=== PATIENT | male | born 1975 | race Two or more races ===

== ENCOUNTER 2019-02-24 09:27 | Emergency (ER) | payer SELFPAY ==
[2019-02-24] MEDS ORDERED: ASPIRIN 81 MG TABLET, CHEWABLE PO ONE (10:09)
--- NOTE | 2019-02-24 10:11 | EKG REPORT ---
SEVERITY:- NORMAL ECG - SINUS RHYTHM : Confirmed by: Lisa Toro 24-Feb-2019 10:10:49
[2019-02-24] MEDS ORDERED: NORMAL SALINE 1000 ML 1,000 ML IV ONE (10:30)
[2019-02-24] MEDS ORDERED: KETOROLAC TROMETHAMINE INJ/PF 30 MG/1 ML SDV IV ONE (10:30)
[2019-02-24 10:40] LABS: ABSOLUTE LYMPHOCYTES (AUTO) 1.1 10^3/uL (0.5-4.7); ABSOLUTE MONOCYTES (AUTO) 0.4 10^3/uL (0.1-1.4); BASOPHILS % (AUTO) 0.2 % (0-2); HEMATOCRIT 40.8 % (37.9-51.0); HEMOGLOBIN 13.8 g/dL (13.5-17.0); LYMPHOCYTES % (AUTO) 9.8 % (13-45); MEAN CORPUSCULAR HEMOGLOBIN 31.6 pg (27.0-33.4); MEAN CORPUSCULAR HGB CONC 33.8 g/dL (32.0-36.0); MEAN CORPUSCULAR VOLUME 94 fl (80-97); MONOCYTES % (AUTO) 3.8 % (3-13); PLATELET COUNT 149 10^3/uL (150-450); RED BLOOD COUNT 4.36 10^6/uL (4.35-5.55); RED CELL DISTRIBUTION WIDTH 13.3 % (11.5-14.0); SEGMENTED NEUTROPHILS % (AUTO) 86.2 % (42-78); TOTAL CELLS COUNTED % (AUTO) 100 %; WHITE BLOOD COUNT 11.6 10^3/uL (4.0-10.5)
--- NOTE | 2019-02-24 10:48 | RADIOLOGY REPORT (SQ) ---
EXAM DESCRIPTION: CHEST 2 VIEWS COMPLETED DATE/TIME: 02/24/2019 10:36 am REASON FOR STUDY: cp COMPARISON: None. EXAM PARAMETERS: NUMBER OF VIEWS: two views TECHNIQUE: Digital Frontal and Lateral radiographic views of the chest acquired. RADIATION DOSE: NA LIMITATIONS: none FINDINGS: LUNGS AND PLEURA: No opacities, masses or pneumothorax. No pleural effusion. MEDIASTINUM AND HILAR STRUCTURES: No masses or contour abnormalities. HEART AND VASCULAR STRUCTURES: Heart normal size. No evidence for failure. BONES: No acute findings. HARDWARE: None in the chest. OTHER: No other significant finding. IMPRESSION: NO ACUTE RADIOGRAPHIC FINDING IN THE CHEST. TECHNICAL DOCUMENTATION: JOB ID: [id number]- All Rights Reserved Reading location - IP/workstation name: [email or web address]
[2019-02-24 11:17] LABS: ALANINE AMINOTRANSFERASE 44 U/L (21-72); ALBUMIN 3.9 g/dL (3.5-5.0); ALKALINE PHOSPHATASE 56 U/L (38-126); ANION GAP 8 (5-19); ASPARTATE AMINO TRANSFERASE 23 U/L (17-59); BILIRUBIN,DIRECT 0.2 mg/dL (0.0-0.4); BILIRUBIN,TOTAL 0.9 mg/dL (0.2-1.3); BLOOD UREA NITROGEN 16 mg/dL (7-20); CALCIUM 8.9 mg/dL (8.4-10.2); CARBON DIOXIDE 24 mmol/L (22-30); CHLORIDE 104 mmol/L (98-107); CREATINE KINASE 82 U/L (55-170); GLUCOSE 124 mg/dL (75-110); TOTAL PROTEIN 6.7 g/dL (6.3-8.2)
[2019-02-24 11:18] LABS: CREATINE KINASE MB 0.42 ng/mL (<4.55)
[2019-02-24 11:23] LABS: TROPONIN I < 0.012 ng/mL
--- NOTE | 2019-02-24 13:51 | ER Document Report ---
ED General - General Chief Complaint: Chest Pain Stated Complaint: CHEST PAIN Time Seen by Provider: 02/24/19 10:19 - HPI Notes: Patient is a 43-year-old gentleman who presents to the emergency department for evaluation. He has multiple complaints. Last night he started feeling "just bad." He stated he felt achy all over, felt as if he had a fever. He states he has had some tingling in his chest. He states he is felt febrile today. He has had pain that radiates in his arms and his legs. He has had some nausea but no emesis. Normal bowel movements. He states he noticed a red melly on his right ankle. He believes he might have been stung by a an insect of some sort. It was hurting yesterday, now it itches. He denies any shortness of breath or cough. No dental issues. He is urinating normally. Normal bowel movements. - Related Data Allergies/Adverse Reactions: No Known Allergies Allergy (Verified 02/24/19 09:32) Past Medical History - General Information source: Patient - Social History Smoking Status: Never Smoker Family History: DM - Recent diagnosis and brother Patient has suicidal ideation: No Patient has homicidal ideation: No Endocrine Medical History: Reports: Hx Diabetes Mellitus Type 2 Renal/ Medical History: Denies: Hx Peritoneal Dialysis Review of Systems - Review of Systems Constitutional: See HPI EENT: No symptoms reported Cardiovascular: See HPI Respiratory: No symptoms reported Gastrointestinal: See HPI Genitourinary: No symptoms reported Musculoskeletal: See HPI Skin: No symptoms reported Neurological/Psychological: No symptoms reported Physical Exam - Vital signs Vitals: Temp Pulse Resp BP Pulse Ox 97.7 F 51 L 16 121/61 96 02/24/19 09:43 02/24/19 09:43 02/24/19 09:43 02/24/19 09:43 02/24/19 09:43 - Notes Notes: Vital signs reviewed, please refer to chart. Head is normocephalic, atraumatic. Pupils equal round, reactive to light. Neck is supple without meningismus. Heart is regular rate and rhythm. Lungs are clear to auscultation bilaterally. Abdomen is soft, nontender, normoactive bowel sounds throughout. Extremities without cyanosis, clubbing. Posterior calves are nontender. Summation of the right ankle yields an ecchymotic appearing lesion approximately 4 cm in diameter, with some vague, not well demarcated surrounding erythema. Peripheral pulses are equal. Skin is warm and dry. Patient is awake, alert, neurological exam is nonfocal. Course - Re-evaluation Re-evalutation: 02/24/19 13:51 Patient presents emergency department for evaluation of multiple complaints. In short, he was registered as a chest pain, but his symptoms seem more likely to be at the possibility of infectious. His heart rate is in the 50s. His laboratory investigations reveal a mild leukocytosis but otherwise unremarkable. The symptom that he had in his chest was only a "tingling." Asked him to the patient that it is a second order here would rule out coronary artery disease. He is a diabetic, is obese, should have further evaluation of the chest pain. But at this point, I do suspect this is likely secondary to infection. I will go ahead and treat him with clindamycin for cellulitis of his right ankle. He is amenable to this plan. He is to follow-up with primary care next week, return to the ED with worsening or new concerning symptoms of any sort. - Vital Signs Vital signs: Temp Pulse Resp BP Pulse Ox 97.7 F 51 L 16 125/79 98 02/24/19 10:00 02/24/19 09:43 02/24/19 12:01 02/24/19 12:01 02/24/19 12:01 - Laboratory Result Diagrams: 02/24/19 10:15 02/24/19 10:15 Laboratory results interpreted by me: 02/24/19 02/24/19 10:15 10:15 WBC 11.6 H Plt Count 149 L Seg Neutrophils % 86.2 H Lymphocytes % 9.8 L Absolute Neutrophils 10.0 H Sodium 136.2 L Glucose 124 H - Diagnostic Test Radiology reviewed: Reports reviewed Radiology results interpreted by me: 02/24/19 13:49 Patient presents emergency department for evaluation of multiple complaints. - EKG Interpretation by Me Additional EKG results interpreted by me: 02/24/19 13:52 Sinus bradycardia with a rate of 54 bpm. Normal intervals. No acute ST changes concerning for ischemia or infarction. No old studies available for comparison. Discharge - Discharge Clinical Impression: Cellulitis of right ankle Condition: Stable Disposition: HOME, SELF-CARE Instructions: Cellulitis ([facility]), Chest Pain of Unclear Cause ([facility]) Additional Instructions: Call the antibiotic as prescribed until gone. Follow-up with your primary care provider next week. Return to the emergency department for worsening or new concerning symptoms of any sort.
[2019-02-24 14:16] VITALS: BP 129/76
== END 2019-02-24 14:25 | disposition home or self-care (01) ==
LOC: ER 09:27
DX: L03.115 Cellulitis of right lower limb (principal); R07.9 Chest pain, unspecified; R11.0 Nausea; E11.9 Type 2 diabetes mellitus without complications
CPT/HCPCS: 93005; 99285; 96361; 96374; 36415; 87040; 82553; 82550; 85025; 87077; 80053; 84484; 71046; 93010; J1885; J7030; 87186